=== PATIENT | female | born 1955 | race Hispanic/Latino ===

== ENCOUNTER → 2019-01-09 | Outpatient (CLI) | payer MEDICARE, OTHER | END | disposition home or self-care (01) | LOC: OIH 11:05 | PROVIDERS: ATTEND Internal Medicine | DX: J45.909 Unspecified asthma, uncomplicated (principal); M47.815 Spondylosis without myelopathy or radiculopathy, thoracolumbar region | CPT/HCPCS: 71046 ==

== ENCOUNTER → 2019-04-23 | Outpatient (CLI) | payer OTHER | END | disposition home or self-care (01) | LOC: OIH 10:16 | PROVIDERS: ATTEND Internal Medicine | DX: I10 Essential (primary) hypertension (principal) | CPT/HCPCS: 71046 ==

== ENCOUNTER 2019-11-08 15:32 | Inpatient (IN) | payer OTHER ==
[~2019-11-08] VITALS: Ht 172.7 cm; Wt 84.8 kg
[2019-11-08] MEDS ORDERED: ACETAMINOPHEN 325 MG TAB ONE (15:41)
[2019-11-08 15:55] LABS: BASOPHILS % (AUTO) 0.1 % (0.0-5.0); HEMATOCRIT 39.2 % (36-48); LYMPHOCYTES % (AUTO) 3.2 % (21.0-51.0); MEAN CORPUSCULAR HEMOGLOBIN 29.9 pg (27.0-33.0); MEAN CORPUSCULAR HGB CONC 36.2 g/dL (32.0-36.0); MEAN CORPUSCULAR VOLUME 82.5 fL (79-99); MONOCYTES % (AUTO) 2.3 % (3.0-13.0); NEUTROPHILS % (AUTO) 93.9 % (40.0-77.0); PLATELET COUNT (AUTO) 244 K/uL (130-400); RED BLOOD CELL COUNT(AUTO) 4.75 MIL/uL (4.00-5.50)
[2019-11-08] MEDS ORDERED: ALBUTEROL INHALER 90MCG/INH IH ONE (16:08)
[2019-11-08 16:09] LABS: INR 0.95 (0.85-1.15); PARTIAL THROMBOPLASTIN TIME 29.6 SEC (26.3-35.5); PROTHROMBIN TIME 10.3 SEC (9.6-11.6)
[2019-11-08] MEDS ORDERED: ONDANSETRON HCL 4 MG/2 ML VIAL ONE (16:09)
[2019-11-08] MEDS ORDERED: DEXAMETHASONE SOD PHOSPHATE 10MG/ML 1ML VIAL ONE (16:09)
[2019-11-08 16:10] LABS: ABG BASE EXCESS 7.1 mmol/L (-2.0-3.0); ABG HCO3 28.7 mmol/L (21.0-28.0); ABG OXYGEN SATURATION 86.5 % (95.0-99.0); ABG PCO2 32 mmHg (32-45)
[2019-11-08] MEDS ORDERED: ZINC SULFATE 220 CAPSULE ONE (16:10)
[2019-11-08] MEDS ORDERED: DOXYCYCLINE 100MG+NS 250ML 250 ML IV ONE (16:10)
[2019-11-08 16:15] LABS: ALBUMIN 2.6 g/dL (3.5-5.0); BILIRUBIN,TOTAL 0.7 mg/dL (0.2-1.0); CREATININE 1.4 mg/dL (0.5-1.5); TOTAL PROTEIN, SERUM 6.8 g/dL (6.0-8.3)
[2019-11-08 16:19] LABS: POTASSIUM 2.1 mmol/L (3.5-5.1)
[2019-11-08] MEDS ORDERED: POTASSIUM BICARB/CIT AC 25 MEQ TABLET.EFF ONE (16:23)
[2019-11-08 16:25] LABS: MYOGLOBIN 378 ng/mL (10-92); TROPONIN I < 0.04 ng/mL (0.00-0.06)
[2019-11-08 16:26] LABS: CREATINE KINASE, TOTAL 517 U/L (21-232)
[2019-11-08] MEDS ORDERED: POTASSIUM CHLORIDE 20MEQ/100ML 100 ML IV ONE (16:27)
[2019-11-08] MEDS ORDERED: AZITHROMYCIN 500MG+NS 250ML 250 ML IV ONE (19:03)
[2019-11-09] VITALS (7 sets, daily range): BP systolic 107–137; BP diastolic 54–81
[2019-11-09] MEDS ORDERED: ALBUTEROL INHALER 90MCG/INH IH PRN (02:45)
[2019-11-09] MEDS ORDERED: POTASSIUM CHLORIDE 20MEQ/100ML 100 ML IV PRN (03:00)
[2019-11-09] MEDS ORDERED: LIDOCAINE HCL-MPF 1% 2ML VIAL IV PRN (03:00)
[2019-11-09 05:34] LABS: HEMATOCRIT 36.2 % (36-48); MEAN CORPUSCULAR HEMOGLOBIN 29.8 pg (27.0-33.0); MEAN CORPUSCULAR HGB CONC 36.2 g/dL (32.0-36.0); MEAN CORPUSCULAR VOLUME 82.3 fL (79-99); RED BLOOD CELL COUNT(AUTO) 4.4 MIL/uL (4.00-5.50); RED CELL DISTRIBUTION WIDTH 12.9 % (11.0-15.5); WHITE BLOOD COUNT (AUTO) 10.3 K/uL (4.8-10.8)
[2019-11-09] MEDS: INSULIN HUMULIN R 100 UNIT/ML 3ML SQ SCH ×3 (05:43→20:55)
[2019-11-09 05:49] LABS: CREATININE 1.2 mg/dL (0.5-1.5)
[2019-11-09 05:55] LABS: POTASSIUM 2.8 mmol/L (3.5-5.1)
[2019-11-09] MEDS: POTASSIUM CHLORIDE 20 MEQ ERTAB PO PRN ×3 (06:46→15:43)
[2019-11-09] MEDS ORDERED: ENOXAPARIN SODIUM 1 MG/KG SQ SCH (09:00)
[2019-11-09] MEDS ORDERED: DEXAMETHASONE SOD PHOSPHATE 4 MG/ML 1ML VIAL IVP SCH (09:00)
[2019-11-09] MEDS: ENOXAPARIN SODIUM 80 MG/0.8 ML SQ SCH ×2 (09:27→20:55)
[2019-11-09] MEDS: AZITHROMYCIN 500MG+NS 250ML 250 ML IV SCH (09:27)
[2019-11-09] MEDS: DEXAMETHASONE SOD PHOSPHATE 4 MG/ML 1ML VIAL IVP SCH (09:27)
[2019-11-09] MEDS: ACETAMINOPHEN 325 MG TAB PO PRN (14:25)
[2019-11-09] MEDS ORDERED: AMLO5TAB4 PO (15:26)
[2019-11-09] MEDS ORDERED: LOSA50TA64 PO (15:39)
[2019-11-09] MEDS ORDERED: ATOR40TA71 PO (15:39)
[2019-11-09] MEDS ORDERED: METF-910 PO (15:39)
--- NOTE | 2019-11-09 19:00 | NUR ---
INITIAL: Unable to speak or meet w pt. Call placed to [facility] per dixie. Prior to admission pt was living w her spouse. She was independent w ambulation and ADLs. She has been borrowing her dtrs nebulizer machine. Pt was previously driving herself where needed. Pt Elizabeth dcp is for pt to return home at discharge. CM to continue to follow and wait for Md recommendations. Addendum: 11/09/19 at 1902 by JA DIAZ Amended: Links added.
[2019-11-10] VITALS (7 sets, daily range): BP systolic 109–138; BP diastolic 57–77
[2019-11-10] MEDS: POTASSIUM CHLORIDE 20 MEQ ERTAB PO PRN
[2019-11-10] MEDS: POTASSIUM CHLORIDE 10% ELIXIR 20 MEQ/15 ML UDCUP PO PRN ×5 (02:30→18:58)
[2019-11-10] MEDS: ACETAMINOPHEN 325 MG TAB PO PRN (03:49)
[2019-11-10 04:03] LABS: ABG HCO3 27.5 mmol/L (21.0-28.0); ABG OXYGEN SATURATION 86.6 % (95.0-99.0); ABG PCO2 38 mmHg (32-45)
[2019-11-10 05:38] LABS: BASOPHILS % (AUTO) 0.1 % (0.0-5.0); LYMPHOCYTES % (AUTO) 4.3 % (21.0-51.0); MEAN CORPUSCULAR HEMOGLOBIN 29.7 pg (27.0-33.0); MEAN CORPUSCULAR HGB CONC 36.3 g/dL (32.0-36.0); MEAN CORPUSCULAR VOLUME 81.8 fL (79-99); MONOCYTES % (AUTO) 3.8 % (3.0-13.0); NEUTROPHILS % (AUTO) 91.3 % (40.0-77.0); PLATELET COUNT (AUTO) 270 K/uL (130-400); RED BLOOD CELL COUNT(AUTO) 4.28 MIL/uL (4.00-5.50); RED CELL DISTRIBUTION WIDTH 12.9 % (11.0-15.5)
[2019-11-10 06:10] LABS: ALBUMIN 2.2 g/dL (3.5-5.0); BILIRUBIN,DIRECT 0.1 mg/dL (0.0-0.3); BILIRUBIN,TOTAL 0.5 mg/dL (0.2-1.0); CREATININE 1.1 mg/dL (0.5-1.5); MAGNESIUM 2.7 mg/dL (1.80-2.40); PHOSPHORUS 2.1 mg/dL (2.5-4.9); POTASSIUM 3.3 mmol/L (3.5-5.1)
[2019-11-10] MEDS: INSULIN HUMULIN R 100 UNIT/ML 3ML SQ SCH ×4 (06:44→16:53)
[2019-11-10] MEDS: DEXAMETHASONE SOD PHOSPHATE 4 MG/ML 1ML VIAL IVP SCH (08:32)
[2019-11-10] MEDS: ENOXAPARIN SODIUM 80 MG/0.8 ML SQ SCH ×2 (08:32→20:32)
[2019-11-10] MEDS: AZITHROMYCIN 500MG+NS 250ML 250 ML IV SCH (08:32)
[2019-11-10] MEDS ORDERED: LOPERAMIDE 1 MG/7.5 ML UDCUP PO PRN (10:00)
[2019-11-10] MEDS: GUAIFENESIN-CODEINE 5 ML SYRUP PO PRN ×2 (10:58→21:12)
[2019-11-10] MEDS: METRONIDAZOLE 500MG/100ML BAG 100 ML IV SCH ×2 (12:48→21:11)
[2019-11-10] MEDS ORDERED: ALBUTEROL INHALER 90MCG/INH IH PRN (13:45)
--- NOTE | 2019-11-10 14:05 | NUR ---
Pt asked if she could turn over & stated that she needed to use the bathroom as well. Pt had been in prone position for ~ 4hours. Pt denied SOB, SpO2 98% on HFNC. Assisted to help pt turn back to supine but pt became distressed when she turned and sat up. Sats decreased to the 70's. 100% NRB added for flow & HFNC increased to 55L. Renita RN came to bedside to help. We placed pt back in prone position. Sats increased to 93% and pt WOB improved.
[2019-11-11] VITALS (16 sets, daily range): BP systolic 130–155; BP diastolic 66–89
[2019-11-11] MEDS: GUAIFENESIN-CODEINE 5 ML SYRUP PO PRN ×2 (05:01→13:17)
[2019-11-11] MEDS: METRONIDAZOLE 500MG/100ML BAG 100 ML IV SCH ×3 (05:01→21:17)
[2019-11-11 05:55] LABS: BASOPHILS % (AUTO) 0.1 % (0.0-5.0); HEMATOCRIT 37.2 % (36-48); LYMPHOCYTES % (AUTO) 5.1 % (21.0-51.0); MEAN CORPUSCULAR HEMOGLOBIN 29.6 pg (27.0-33.0); MEAN CORPUSCULAR HGB CONC 35.5 g/dL (32.0-36.0); MEAN CORPUSCULAR VOLUME 83.4 fL (79-99); MONOCYTES % (AUTO) 4.1 % (3.0-13.0); NEUTROPHILS % (AUTO) 90.2 % (40.0-77.0); PLATELET COUNT (AUTO) 275 K/uL (130-400); RED BLOOD CELL COUNT(AUTO) 4.46 MIL/uL (4.00-5.50); RED CELL DISTRIBUTION WIDTH 13.2 % (11.0-15.5); WHITE BLOOD COUNT (AUTO) 13.2 K/uL (4.8-10.8)
[2019-11-11 06:25] LABS: ALBUMIN 2.3 g/dL (3.5-5.0); BILIRUBIN,TOTAL 0.6 mg/dL (0.2-1.0); CREATININE 1.2 mg/dL (0.5-1.5); MAGNESIUM 2.4 mg/dL (1.80-2.40); PHOSPHORUS 2.7 mg/dL (2.5-4.9); POTASSIUM 3.9 mmol/L (3.5-5.1); TOTAL PROTEIN, SERUM 6.2 g/dL (6.0-8.3)
[2019-11-11] MEDS: INSULIN HUMULIN R 100 UNIT/ML 3ML SQ SCH ×4 (07:29→21:00)
[2019-11-11] MEDS: AZITHROMYCIN 500MG+NS 250ML 250 ML IV SCH (09:17)
[2019-11-11] MEDS: DEXAMETHASONE SOD PHOSPHATE 4 MG/ML 1ML VIAL IVP SCH (09:17)
[2019-11-11] MEDS: ENOXAPARIN SODIUM 80 MG/0.8 ML SQ SCH ×2 (09:18→21:17)
[2019-11-11 11:14] LABS: ABG BASE EXCESS 4.4 mmol/L (-2.0-3.0); ABG HCO3 27.6 mmol/L (21.0-28.0); ABG OXYGEN SATURATION 89.8 % (95.0-99.0); ABG PCO2 37 mmHg (32-45)
[2019-11-11] MEDS ORDERED: FUROSEMIDE 10 MG/ML 10ML VIAL ONE (15:26)
[2019-11-11] MEDS: FUROSEMIDE 10 MG/ML 2ML VIAL IV SCH (15:40)
--- NOTE | 2019-11-11 19:00 | NUR ---
ACCEPTED CARE ACCEPTED CARE REPORT RECEIVED USING SBAR FORMAT
--- NOTE | 2019-11-11 19:02 | NUR ---
Patient transferred to ICU due to current respiratory status (Per Dr. Muhammad) She is currently on HFNC 40L and NRB (15L at this time) VSS and no complaints of pain or discomfort. Convalescent plasma consent but will no longer be given due concern for fluid overload. made aware of unit change. Patient belongings bedside-spouse will shredder picker in the morning.
[2019-11-11] MEDS: METHYLPREDNISOLONE SOD SUCC 125MG/2ML VIAL IVP SCH (21:17)
[2019-11-12] VITALS (14 sets, daily range): BP systolic 122–156; BP diastolic 65–93
[2019-11-12 03:46] LABS: BASOPHILS % (AUTO) 0.1 % (0.0-5.0); HEMATOCRIT 35.2 % (36-48); LYMPHOCYTES % (AUTO) 3.4 % (21.0-51.0); MEAN CORPUSCULAR HEMOGLOBIN 29.8 pg (27.0-33.0); MEAN CORPUSCULAR HGB CONC 35.5 g/dL (32.0-36.0); MONOCYTES % (AUTO) 1.5 % (3.0-13.0); NEUTROPHILS % (AUTO) 94.4 % (40.0-77.0); PLATELET COUNT (AUTO) 264 K/uL (130-400); RED BLOOD CELL COUNT(AUTO) 4.19 MIL/uL (4.00-5.50); RED CELL DISTRIBUTION WIDTH 12.9 % (11.0-15.5); WHITE BLOOD COUNT (AUTO) 12.2 K/uL (4.8-10.8)
[2019-11-12 04:02] LABS: CREATININE 1.1 mg/dL (0.5-1.5); MAGNESIUM 2.4 mg/dL (1.80-2.40); POTASSIUM 3.9 mmol/L (3.5-5.1)
[2019-11-12 04:20] LABS: ABG BASE EXCESS 2.2 mmol/L (-2.0-3.0); ABG HCO3 26.2 mmol/L (21.0-28.0); ABG OXYGEN SATURATION 97.8 % (95.0-99.0); ABG PCO2 39 mmHg (32-45)
[2019-11-12] MEDS: METRONIDAZOLE 500MG/100ML BAG 100 ML IV SCH ×3 (05:21→20:20)
[2019-11-12] MEDS: FUROSEMIDE 10 MG/ML 2ML VIAL IV SCH ×2 (05:22→17:35)
[2019-11-12] MEDS: INSULIN HUMULIN R 100 UNIT/ML 3ML SQ SCH ×4 (06:19→20:19)
[2019-11-12] MEDS: AZITHROMYCIN 500MG+NS 250ML 250 ML IV SCH (08:58)
[2019-11-12] MEDS: METHYLPREDNISOLONE SOD SUCC 125MG/2ML VIAL IVP SCH ×2 (08:58→20:19)
[2019-11-12] MEDS: ENOXAPARIN SODIUM 80 MG/0.8 ML SQ SCH ×2 (08:59→20:20)
[2019-11-12] MEDS ORDERED: PHARMACY COMMUNICATION MISC SCH (09:00)
[2019-11-12] MEDS: GUAIFENESIN-CODEINE 5 ML SYRUP PO PRN ×3 (09:51→17:37)
[2019-11-12] MEDS ORDERED: COMPOUND IV REFRIGERATED 1 EACH IVSOLN MISC PRN ×2 (14:30→15:00)
[2019-11-12] MEDS: BENZONATATE 100 MG CAPSULE PO SCH ×2 (14:55→23:00)
[2019-11-12] MEDS ORDERED: REMDESIVIR (EUA) 520 200 MG in SODIUM CHLORIDE 0.9% 250 ML IV ONE (15:00)
[2019-11-12] MEDS ORDERED: GUAIFENESIN 600 MG TABLET.ER PO SCH (15:50)
--- NOTE | 2019-11-12 17:51 | NUR ---
OXYGEN SATURATION STATUS PTWAS ABLE TO BE POSITIONED IN HI- FOWLERS POSITION IN BED AND TOLERATED PO FOOD AND LIQUID INTAKE WITH SATS MAINTAINING GREATER THAT 92% WITH EXERTION. PTPREFERS NON SPICY AND LESS SALTY FOODS. RECEIVED 1ST DOSE OF REMDESIVER THIS AT 3PM. FOLLOWED BY AMELIA. HAND QUILTER WAS ABLE TO UPDATE AND ADDRESS ANY QUESTIONS ASKED. ONLINE FACILITATOR AND MD MADE ROUNDS AND ADDRESSED COUGH AND PRODUCTIVE SPUTUM. WILL CONTINUE TO MONITOR
[2019-11-12] MEDS: GUAIFENESIN 600 MG TABLET.ER PO SCH (20:19)
[2019-11-13] VITALS (16 sets, daily range): BP systolic 107–145; BP diastolic 58–77
[2019-11-13 04:11] LABS: BASOPHILS % (AUTO) 0.2 % (0.0-5.0); HEMATOCRIT 37.9 % (36-48); LYMPHOCYTES % (AUTO) 2.5 % (21.0-51.0); MEAN CORPUSCULAR HEMOGLOBIN 29.6 pg (27.0-33.0); MEAN CORPUSCULAR HGB CONC 35.1 g/dL (32.0-36.0); MEAN CORPUSCULAR VOLUME 84.4 fL (79-99); NEUTROPHILS % (AUTO) 93.6 % (40.0-77.0); PLATELET COUNT (AUTO) 290 K/uL (130-400); RED BLOOD CELL COUNT(AUTO) 4.49 MIL/uL (4.00-5.50); RED CELL DISTRIBUTION WIDTH 12.8 % (11.0-15.5); WHITE BLOOD COUNT (AUTO) 18.5 K/uL (4.8-10.8)
[2019-11-13 04:31] LABS: ABG BASE EXCESS 3.2 mmol/L (-2.0-3.0); ABG HCO3 26.5 mmol/L (21.0-28.0); ABG OXYGEN SATURATION 87.9 % (95.0-99.0); ABG PCO2 37 mmHg (32-45)
[2019-11-13 04:35] LABS: CREATININE 1.3 mg/dL (0.5-1.5); POTASSIUM 3.9 mmol/L (3.5-5.1)
[2019-11-13] MEDS: METRONIDAZOLE 500MG/100ML BAG 100 ML IV SCH ×3 (05:00→23:13)
[2019-11-13] MEDS: PHARMACY COMMUNICATION MISC SCH (05:00)
[2019-11-13] MEDS: FUROSEMIDE 10 MG/ML 2ML VIAL IV SCH ×2 (05:00→15:29)
[2019-11-13] MEDS: BENZONATATE 100 MG CAPSULE PO SCH ×3 (05:37→23:13)
[2019-11-13] MEDS: INSULIN HUMULIN R 100 UNIT/ML 3ML SQ SCH (05:37)
[2019-11-13] MEDS: METHYLPREDNISOLONE SOD SUCC 125MG/2ML VIAL IVP SCH ×2 (09:18→21:00)
[2019-11-13] MEDS: AZITHROMYCIN 500MG+NS 250ML 250 ML IV SCH (09:18)
[2019-11-13] MEDS: ENOXAPARIN SODIUM 80 MG/0.8 ML SQ SCH ×2 (09:19→21:00)
[2019-11-13] MEDS: GUAIFENESIN 600 MG TABLET.ER PO SCH ×2 (09:19→21:00)
[2019-11-13] MEDS ORDERED: REMDESIVIR (EUA) 520 100 MG in SODIUM CHLORIDE 0.9% 250 ML IV SCH (15:00)
[2019-11-13] MEDS: GUAIFENESIN-CODEINE 5 ML SYRUP PO PRN (15:28)
--- NOTE | 2019-11-13 19:17 | NUR ---
PT SLEPT EARLIER PART OF SHIFT. DID NOT CONSUME BREAKFAST. WAS ABLE TO BE REPOSITIONED FOR LUNCH AND CONSUMED HALF OF MEAL ALONG WITH MINERAL WATER PROVIDED BY FAMILY. PT HAD 2 LARGE LOOSE STOOLS THIS SHIFT. RECEIVED 2ND DOSE OF REMDESIVIR-TOLERATED WELL. REMAINS AFEBRILE WITH V/S WNL. INCREASED OXYGEN TO 55L IN ORDER TO MAINTAIN SATS GREATER THAT 90.
[2019-11-14] VITALS (11 sets, daily range): BP systolic 96–164; BP diastolic 55–95
[2019-11-14 03:44] LABS: HEMATOCRIT 39.4 % (36-48); MEAN CORPUSCULAR HEMOGLOBIN 29.2 pg (27.0-33.0); MEAN CORPUSCULAR HGB CONC 34.5 g/dL (32.0-36.0); MEAN CORPUSCULAR VOLUME 84.7 fL (79-99); RED BLOOD CELL COUNT(AUTO) 4.65 MIL/uL (4.00-5.50); RED CELL DISTRIBUTION WIDTH 12.9 % (11.0-15.5); WHITE BLOOD COUNT (AUTO) 16.1 K/uL (4.8-10.8)
[2019-11-14 04:04] LABS: CREATININE 1.4 mg/dL (0.5-1.5); POTASSIUM 4.2 mmol/L (3.5-5.1)
[2019-11-14 04:41] LABS: ABG BASE EXCESS 2.7 mmol/L (-2.0-3.0); ABG HCO3 26.2 mmol/L (21.0-28.0); ABG OXYGEN SATURATION 82.3 % (95.0-99.0); ABG PCO2 37 mmHg (32-45)
[2019-11-14] MEDS: METRONIDAZOLE 500MG/100ML BAG 100 ML IV SCH ×3 (05:47→22:25)
[2019-11-14] MEDS: FUROSEMIDE 10 MG/ML 2ML VIAL IV SCH ×2 (05:47→18:33)
[2019-11-14] MEDS: PHARMACY COMMUNICATION MISC SCH (06:01)
[2019-11-14] MEDS: GUAIFENESIN-CODEINE 5 ML SYRUP PO PRN (09:21)
[2019-11-14] MEDS: BENZONATATE 100 MG CAPSULE PO SCH ×3 (09:21→22:25)
[2019-11-14] MEDS: ACETAMINOPHEN 325 MG TAB PO PRN (09:23)
[2019-11-14] MEDS: ENOXAPARIN SODIUM 80 MG/0.8 ML SQ SCH ×2 (09:23→22:25)
[2019-11-14] MEDS: GUAIFENESIN 600 MG TABLET.ER PO SCH (09:24)
[2019-11-14] MEDS: METHYLPREDNISOLONE SOD SUCC 125MG/2ML VIAL IVP SCH ×2 (09:24→22:24)
[2019-11-14] MEDS: AZITHROMYCIN 500MG+NS 250ML 250 ML IV SCH (09:33)
[2019-11-14] MEDS: REMDESIVIR (EUA) 520 100 MG in SODIUM CHLORIDE 0.9% 250 ML IV SCH (11:30)
[2019-11-14] MEDS: INSULIN HUMULIN R 100 UNIT/ML 3ML SQ SCH ×3 (11:30→21:00)
--- NOTE | 2019-11-14 15:22 | NUR ---
RD NOTIFICATION Pt admitted with COVID-PNA. Heart healthy diet order in place. Patient with poor appetite. High Flow oxygen support, increased work of breathing. Monitored labs: WBC 16.1, BUN 40, BG 129, Ca 8.3, Alb 2.3. Recommend Glucerna TID Recommend Daily MVI RD to continue to monitor. Please notify as additional nutrition concerns arise. Thank you.
[2019-11-14] MEDS: GUAIFENESIN-CODEINE 5 ML SYRUP PO SCH ×2 (15:45→22:25)
[2019-11-14] MEDS: CEFEPIME HCL 2 GM VIAL IVP SCH (16:00)
--- NOTE | 2019-11-14 18:00 | NUR ---
ASSESSMENT PT GIVEN CHAIR BATH. SATS DROPPED DOWN IN 70S AND 80S DURING CARE AND SITTING UP. PT DESIRED TO REMAIN SITTING UP IN CHAIR FOR ABOUT 40 MINUTES WHILE EATING BROTH AT THAT TIME SHE HAD A LARGE LOOSE BM. STOOL WAS COLLECTED AND SENT TO LAB TESTING DISCUSSED WITH CLINICAL SCIENTIST THE DAY PRIOR. PT WAS THEN POSITIONED IN BED AND SATS SLOWLY INCREASED TO 92%. PT RESTED QUIETLY UNTIL END OF SHIFT.
[2019-11-15] VITALS (11 sets, daily range): BP systolic 94–120; BP diastolic 43–68
[2019-11-15] MEDS: GUAIFENESIN-CODEINE 5 ML SYRUP PO SCH ×4 (04:32→20:51)
[2019-11-15 04:52] LABS: HEMATOCRIT 39.2 % (36-48); MEAN CORPUSCULAR HEMOGLOBIN 29.7 pg (27.0-33.0); MEAN CORPUSCULAR HGB CONC 35.2 g/dL (32.0-36.0); MEAN CORPUSCULAR VOLUME 84.5 fL (79-99); RED BLOOD CELL COUNT(AUTO) 4.64 MIL/uL (4.00-5.50); RED CELL DISTRIBUTION WIDTH 12.9 % (11.0-15.5)
[2019-11-15 05:23] LABS: CARBON DIOXIDE 30 mmol/L (21-32); CHLORIDE 105 mmol/L (101-111); CREATININE 1.4 mg/dL (0.5-1.5); GLOMERULAR FILTR. RATE CALC 40 mL/min (>60); GLUCOSE,RANDOM 170 mg/dL (70-105); MYOGLOBIN 593 ng/mL (10-92); PHOSPHORUS 3.4 mg/dL (2.5-4.9); POTASSIUM 3.6 mmol/L (3.5-5.1); SODIUM SERUM 143 mmol/L (136-145); TROPONIN I < 0.04 ng/mL (0.00-0.06); UREA NITROGEN, BLOOD 41 mg/dL (7-18)
[2019-11-15 05:34] LABS: CREATINE KINASE, TOTAL 485 U/L (21-232)
[2019-11-15] MEDS: FUROSEMIDE 10 MG/ML 2ML VIAL IV SCH ×2 (05:42→15:21)
[2019-11-15] MEDS: METRONIDAZOLE 500MG/100ML BAG 100 ML IV SCH ×3 (05:42→20:52)
[2019-11-15] MEDS: INSULIN HUMULIN R 100 UNIT/ML 3ML SQ SCH ×3 (05:42→21:00)
[2019-11-15] MEDS: BENZONATATE 100 MG CAPSULE PO SCH ×3 (05:42→20:51)
[2019-11-15] MEDS: PHARMACY COMMUNICATION MISC SCH (06:00)
[2019-11-15] MEDS: METHYLPREDNISOLONE SOD SUCC 125MG/2ML VIAL IVP SCH ×2 (09:47→20:53)
[2019-11-15] MEDS: CEFEPIME HCL 2 GM VIAL IVP SCH ×3 (09:47→15:17)
[2019-11-15] MEDS: GUAIFENESIN-DM 200/20 MG 10 ML PO PRN (09:48)
[2019-11-15] MEDS: ENOXAPARIN SODIUM 80 MG/0.8 ML SQ SCH ×2 (09:48→20:53)
[2019-11-15] MEDS: AZITHROMYCIN 500MG+NS 250ML 250 ML IV SCH (09:48)
[2019-11-15] MEDS: REMDESIVIR (EUA) 520 100 MG in SODIUM CHLORIDE 0.9% 250 ML IV SCH (11:30)
--- NOTE | 2019-11-15 12:11 | NUR ---
RECEIVE PT WITH SATS IN THE 70S AND 80S THIS AM. NOTIFIED BUSINESS INTEGRATION MANAGER MD. MD MADE ROUNDS, WAITING ORDERS. PT IN NO APPARENT DISTRESS. WILL CONTINUE TO MONITOR.
[2019-11-15] MEDS ORDERED: MAG HYDROX/AL HYDROX/SIMETH ES 30 ML SUSP UDCUP PO PRN (13:30)
[2019-11-15] MEDS: ACETAMINOPHEN 325 MG TAB PO PRN (15:16)
--- NOTE | 2019-11-15 18:07 | NUR ---
PT WAS ABLE TO COMMUNICATE WITH FAMILY VIA ZOOM MEETING TODAY. APPEARS TO BE HAPPY AND OVERJOYED. LINEN CHANGED AND LAISHA-CARE PROVIDED. PT DID DE-SAT TO THE 80S DURING THIS OCCURRENCE. WAS ABLE TO CONSUME CHICKEN BROTH AND PO FLUIDS UPON HER REQUEST.
[2019-11-16] VITALS (20 sets, daily range): BP systolic 95–134; BP diastolic 55–92
[2019-11-16 03:43] LABS: ABG BASE EXCESS 2.1 mmol/L (-2.0-3.0); ABG HCO3 25.3 mmol/L (21.0-28.0); ABG OXYGEN SATURATION 80.9 % (95.0-99.0); ABG PCO2 35 mmHg (32-45)
[2019-11-16 04:07] LABS: MEAN CORPUSCULAR HEMOGLOBIN 29.9 pg (27.0-33.0); MEAN CORPUSCULAR HGB CONC 35.7 g/dL (32.0-36.0); MEAN CORPUSCULAR VOLUME 83.9 fL (79-99); RED BLOOD CELL COUNT(AUTO) 4.41 MIL/uL (4.00-5.50); RED CELL DISTRIBUTION WIDTH 12.8 % (11.0-15.5); WHITE BLOOD COUNT (AUTO) 15.3 K/uL (4.8-10.8)
[2019-11-16 04:33] LABS: BILIRUBIN,TOTAL 0.6 mg/dL (0.2-1.0); CREATININE 1.3 mg/dL (0.5-1.5); MAGNESIUM 2.5 mg/dL (1.80-2.40); PHOSPHORUS 3.3 mg/dL (2.5-4.9); POTASSIUM 3.3 mmol/L (3.5-5.1); THYROID STIMULATING HORMONE 0.42 uIU/mL (0.36-3.74); TOTAL PROTEIN, SERUM 5.9 g/dL (6.0-8.3)
[2019-11-16] MEDS: GUAIFENESIN-CODEINE 5 ML SYRUP PO SCH ×4 (04:56→21:45)
[2019-11-16] MEDS: CEFEPIME HCL 2 GM VIAL IVP SCH (04:56)
[2019-11-16] MEDS: FUROSEMIDE 10 MG/ML 2ML VIAL IV SCH ×2 (04:58→17:42)
[2019-11-16] MEDS: METRONIDAZOLE 500MG/100ML BAG 100 ML IV SCH ×3 (04:58→22:00)
[2019-11-16] MEDS: BENZONATATE 100 MG CAPSULE PO SCH ×3 (06:05→23:00)
[2019-11-16] MEDS: INSULIN HUMULIN R 100 UNIT/ML 3ML SQ SCH ×4 (06:06→21:00)
[2019-11-16] MEDS: POTASSIUM CHLORIDE 20 MEQ ERTAB PO PRN ×3 (06:31→11:00)
[2019-11-16] MEDS: PHARMACY COMMUNICATION MISC SCH (07:30)
[2019-11-16] MEDS: METHYLPREDNISOLONE SOD SUCC 125MG/2ML VIAL IVP SCH ×2 (07:55→21:00)
[2019-11-16] MEDS: ENOXAPARIN SODIUM 80 MG/0.8 ML SQ SCH ×2 (07:56→21:00)
[2019-11-16] MEDS ORDERED: PHARMACY COMMUNICATION MISC SCH (08:00)
[2019-11-16] MEDS ORDERED: SODIUM CHLORIDE 0.9% 500ML 500 ML IV ONE (11:44)
[2019-11-16] MEDS: REMDESIVIR (EUA) 520 100 MG in SODIUM CHLORIDE 0.9% 250 ML IV SCH (13:05)
[2019-11-16] MEDS: CEFEPIME HCL 1 GM VIAL IVP SCH ×2 (13:43→22:00)
--- NOTE | 2019-11-16 15:37 | NUR ---
FAMILY- AND DAUGHTER- UPDATED BY PHONE. ZOOM SCHEDULED FOR 5:30 PM THIS AFTERNOON. PT RECEIVED COMMUNICATION BOARD FROM FAMILY.
[2019-11-16] MEDS: GUAIFENESIN-DM 200/20 MG 10 ML PO PRN (15:47)
--- NOTE | 2019-11-16 18:00 | NUR ---
ZOOM FAMILY CONFERENCE DONE. PT REQUESTED TO END VIDEO CALL BECAUSE SHE GOT TIRED.
[2019-11-16] MEDS: LACTOBACILLUS RHAMNOSUS GG 1 EACH CAP.SPRINK PO SCH (21:00)
[2019-11-17] VITALS (28 sets, daily range): BP systolic 99–135; BP diastolic 59–76
[2019-11-17 03:29] LABS: HEMATOCRIT 39.2 % (36-48); MEAN CORPUSCULAR HEMOGLOBIN 29.6 pg (27.0-33.0); MEAN CORPUSCULAR HGB CONC 34.9 g/dL (32.0-36.0); MEAN CORPUSCULAR VOLUME 84.7 fL (79-99); RED BLOOD CELL COUNT(AUTO) 4.63 MIL/uL (4.00-5.50); RED CELL DISTRIBUTION WIDTH 13.2 % (11.0-15.5); WHITE BLOOD COUNT (AUTO) 19.4 K/uL (4.8-10.8)
[2019-11-17 03:50] LABS: ALBUMIN 2.1 g/dL (3.5-5.0); BILIRUBIN,TOTAL 0.5 mg/dL (0.2-1.0); CREATININE 1.5 mg/dL (0.5-1.5); MAGNESIUM 2.2 mg/dL (1.80-2.40); POTASSIUM 4.3 mmol/L (3.5-5.1); TOTAL PROTEIN, SERUM 6.1 g/dL (6.0-8.3)
[2019-11-17 04:18] LABS: ABG BASE EXCESS 3.4 mmol/L (-2.0-3.0); ABG OXYGEN SATURATION 91.7 % (95.0-99.0); ABG PCO2 38 mmHg (32-45)
[2019-11-17] MEDS: CEFEPIME HCL 1 GM VIAL IVP SCH ×3 (05:46→22:00)
[2019-11-17] MEDS: METRONIDAZOLE 500MG/100ML BAG 100 ML IV SCH ×3 (05:46→22:00)
[2019-11-17] MEDS: FUROSEMIDE 10 MG/ML 2ML VIAL IV SCH ×2 (05:47→17:17)
[2019-11-17] MEDS: GUAIFENESIN-CODEINE 5 ML SYRUP PO SCH ×4 (05:47→20:41)
[2019-11-17] MEDS: INSULIN HUMULIN R 100 UNIT/ML 3ML SQ SCH ×4 (06:34→21:00)
[2019-11-17] MEDS: BENZONATATE 100 MG CAPSULE PO SCH (06:35)
[2019-11-17] MEDS: PHARMACY COMMUNICATION MISC SCH (07:10)
[2019-11-17] MEDS: METHYLPREDNISOLONE SOD SUCC 125MG/2ML VIAL IVP SCH ×2 (09:00→20:32)
[2019-11-17] MEDS: ENOXAPARIN SODIUM 80 MG/0.8 ML SQ SCH ×2 (09:00→20:32)
[2019-11-17] MEDS: LACTOBACILLUS RHAMNOSUS GG 1 EACH CAP.SPRINK PO SCH ×3 (09:00→20:32)
[2019-11-17] MEDS: REMDESIVIR (EUA) 520 100 MG in SODIUM CHLORIDE 0.9% 250 ML IV SCH (12:13)
[2019-11-18] VITALS (32 sets, daily range): BP systolic 75–150; BP diastolic 50–108
[2019-11-18] MEDS: GUAIFENESIN-CODEINE 5 ML SYRUP PO SCH ×4 (03:45→21:45)
[2019-11-18] MEDS: METRONIDAZOLE 500MG/100ML BAG 100 ML IV SCH ×3 (04:26→21:32)
[2019-11-18] MEDS: FUROSEMIDE 10 MG/ML 2ML VIAL IV SCH ×2 (04:26→16:22)
[2019-11-18] MEDS: CEFEPIME HCL 1 GM VIAL IVP SCH ×3 (04:26→21:32)
--- NOTE | 2019-11-18 05:05 | NUR ---
UPON ASSESSMENT PT NECK APEARS LARGER PALPATED NECK AND CHEST. THERE IS NEW NOTED SUBCUTANEOUS EMPHYSEMA OVER LYING LEFT CHEST DOWN TO HER ANTECUBITAL AREA OF ARM. IT COVERS AND GOES ACROSS HER NECK.
[2019-11-18] MEDS: INSULIN HUMULIN R 100 UNIT/ML 3ML SQ SCH ×4 (07:30→18:00)
[2019-11-18 08:27] LABS: ABG BASE EXCESS 2.5 mmol/L (-2.0-3.0); ABG OXYGEN SATURATION 85.6 % (95.0-99.0); ABG PCO2 36 mmHg (32-45)
[2019-11-18] MEDS: METHYLPREDNISOLONE SOD SUCC 125MG/2ML VIAL IVP SCH ×2 (08:57→21:32)
[2019-11-18] MEDS: ENOXAPARIN SODIUM 80 MG/0.8 ML SQ SCH ×2 (08:57→21:32)
[2019-11-18] MEDS: LACTOBACILLUS RHAMNOSUS GG 1 EACH CAP.SPRINK PO SCH ×3 (09:00→21:33)
[2019-11-18 09:28] LABS: CREATININE 1.6 mg/dL (0.5-1.5); PHOSPHORUS 3.8 mg/dL (2.5-4.9); POTASSIUM 4.1 mmol/L (3.5-5.1)
--- NOTE | 2019-11-18 12:20 | NUR ---
RD FOLLOW UP - TUBE FEEDING NOTIFICATION Pt on continuous BiPap, NGT placed for tube feeding, Recommend continuous tube feeding Glucerna 1.5 initiated at 10mls/hr. Goal rate 45mls/hr to meet protein nutrient needs. Recommend H2O flushes at 200mls Q4hrs Recommendations faxed to 2C ([phone]), RN notified. NUTRITION NOTE: Pt with respiratory failure, increased work of breathing. History of DM, HTN. Monitored lab values: WBC 19.4, Na 148, BUN 58, Cr 1.6, GFR 34, BG 250, Ca 8.2, Mg 3.00, Alb 2.1. Lasix and Lactobacillus antidiarrheal agent in place. Day [address] to continue to monitor. Please notify as additional nutrition concerns arise. Thank you.
--- NOTE | 2019-11-18 12:37 | NUR ---
NURSE COMMUNICATION COMPLETED. RECOMMEND NPO, ALTERNATE MEANS OF NUTRITION/HYDRATION IV (PPN VS TPN) ORDER RECEIVED FOR BEDSIDE SWALLOW EVALUATION. Pt CURRENTLY ON BIPAP. EEG TECHNICIAN COORDINATED WITH MJ SCHAFFER AND NURSE VIVI, Pt NOT ABLE TO TOLERATE BIPAP REMOVAL FOR EVALUATION. PER NURSE, HE ATTEMPTED NG TUBE WITH Pt DESATURATING (NOT TOLERATED BY Pt). RECOMMEND NPO, ALTERNATE MEANS OF NUTRITION/HYDRATION (PPN VS TPN) SECONDARY TO HIGH RISK FOR ASPIRATION. NURSE VERBALIZED UNDERSTANDING OF RECOMMENDATIONS BY EEG TECHNICIAN. Addendum: 11/18/19 at 1248 by ROSENDO LI [facility] Amended: Links added.
[2019-11-18] MEDS ORDERED: DIAZEPAM 2 MG TAB PO PRN (12:45)
[2019-11-18] MEDS ORDERED: DIAZEPAM 5 MG TABLET ONE (12:47)
[2019-11-18 14:03] LABS: BASOPHILS % (AUTO) 0.1 % (0.0-5.0); LYMPHOCYTES % (AUTO) 1.5 % (21.0-51.0); MEAN CORPUSCULAR HEMOGLOBIN 29.7 pg (27.0-33.0); MEAN CORPUSCULAR HGB CONC 34.2 g/dL (32.0-36.0); MEAN CORPUSCULAR VOLUME 86.7 fL (79-99); MONOCYTES % (AUTO) 2.5 % (3.0-13.0); NEUTROPHILS % (AUTO) 95.3 % (40.0-77.0); NUCLEATED RED BLOOD CELLS 0.1 % (0.0-0.19); PLATELET COUNT (AUTO) 343 K/uL (130-400); RED BLOOD CELL COUNT(AUTO) 5.19 MIL/uL (4.00-5.50); WHITE BLOOD COUNT (AUTO) 21.7 K/uL (4.8-10.8)
[2019-11-18] MEDS ORDERED: DEXMEDETOMIDINE HCL 400 MCG in SODIUM CHLORIDE 0.9% 100 ML IV SCH (14:30)
--- NOTE | 2019-11-18 18:32 | NUR ---
DNI Thoroughly explained to patient what DNI means and patient was alert and oriented x 4. Anastasiya MILLWRIGHT APPRENTICE followed up and confirmed patient was alert and oriented to sign the DNI paperwork.
--- NOTE | 2019-11-18 19:00 | NUR ---
ACCEPTED CARE ACCEPTED CARE REPORT RECEIVED USING SBAR FORMAT.
--- NOTE | 2019-11-18 20:00 | NUR ---
CREPITUS BILATERAL UPPER CHEST CREPITUS, RECEIVED IN REPORT MSD WAS AWARE.
[2019-11-18] MEDS ORDERED: SODIUM CHLORIDE 0.9% 500ML 500 ML IV ONE (21:18)
[2019-11-19] VITALS (57 sets, daily range): BP systolic 67–158; BP diastolic 31–120
[2019-11-19] MEDS: GUAIFENESIN-CODEINE 5 ML SYRUP PO SCH ×4 (03:46→22:18)
[2019-11-19 04:11] LABS: BASOPHILS % (AUTO) 0.2 % (0.0-5.0); HEMATOCRIT 49.1 % (36-48); LYMPHOCYTES % (AUTO) 1.6 % (21.0-51.0); MEAN CORPUSCULAR HEMOGLOBIN 29.9 pg (27.0-33.0); MEAN CORPUSCULAR HGB CONC 34.4 g/dL (32.0-36.0); MEAN CORPUSCULAR VOLUME 86.7 fL (79-99); MONOCYTES % (AUTO) 2.1 % (3.0-13.0); NEUTROPHILS % (AUTO) 95.2 % (40.0-77.0); NUCLEATED RED BLOOD CELLS 0.1 % (0.0-0.19); PLATELET COUNT (AUTO) 284 K/uL (130-400); RED BLOOD CELL COUNT(AUTO) 5.66 MIL/uL (4.00-5.50); RED CELL DISTRIBUTION WIDTH 15.3 % (11.0-15.5); WHITE BLOOD COUNT (AUTO) 23.7 K/uL (4.8-10.8)
[2019-11-19 04:41] LABS: ALBUMIN 2.2 g/dL (3.5-5.0); BILIRUBIN,TOTAL 0.6 mg/dL (0.2-1.0); CREATININE 1.9 mg/dL (0.5-1.5); MAGNESIUM 3.3 mg/dL (1.80-2.40); PHOSPHORUS 4.5 mg/dL (2.5-4.9); POTASSIUM 3.9 mmol/L (3.5-5.1); TOTAL PROTEIN, SERUM 6.7 g/dL (6.0-8.3)
[2019-11-19] MEDS: METRONIDAZOLE 500MG/100ML BAG 100 ML IV SCH ×3 (05:27→22:15)
[2019-11-19] MEDS: FUROSEMIDE 10 MG/ML 2ML VIAL IV SCH ×2 (05:28→18:05)
[2019-11-19] MEDS: CEFEPIME HCL 1 GM VIAL IVP SCH ×3 (05:28→22:15)
[2019-11-19] MEDS: INSULIN HUMULIN R 100 UNIT/ML 3ML SQ SCH ×4 (05:34→18:08)
[2019-11-19] MEDS: METHYLPREDNISOLONE SOD SUCC 125MG/2ML VIAL IVP SCH ×2 (10:18→22:14)
[2019-11-19] MEDS: LACTOBACILLUS RHAMNOSUS GG 1 EACH CAP.SPRINK PO SCH ×3 (10:18→22:14)
[2019-11-19] MEDS: ENOXAPARIN SODIUM 80 MG/0.8 ML SQ SCH ×2 (10:21→22:14)
[2019-11-19] MEDS ORDERED: FENTANYL CITRATE PF 50 MCG/1 ML 2ML VIAL IVP SCH (14:00)
[2019-11-19] MEDS ORDERED: NOREPINEPHRINE 4MG/NS 250ML 250 ML IV ONE (14:01)
[2019-11-19] MEDS ORDERED: MIDAZOLAM HCL 1 MG/ML 2ML VIAL ONE (14:02)
[2019-11-19] MEDS ORDERED: FENTANYL CITRATE PF 50 MCG/1 ML 2ML VIAL ONE (14:03)
[2019-11-19] MEDS ORDERED: FENTANYL 2500MCG+NS 250ML 250 ML IV ONE (14:03)
[2019-11-19] MEDS ORDERED: AMIODARONE HCL 150 MG in DEXTROSE 5%-WATER 100 ML IV SCH (14:45)
[2019-11-19] MEDS ORDERED: AMIODARONE HCL 360 MG in DEXTROSE 5%-WATER 200 ML IV SCH (15:00)
[2019-11-19] MEDS ORDERED: MIDAZOLAM HCL 1 MG/ML 2ML VIAL IVP SCH (15:00)
[2019-11-19] MEDS ORDERED: MIDAZOLAM 100MG-0.9% NS 100ML 100ML BAG IV ONE (15:00)
[2019-11-19] MEDS ORDERED: NOREPINEPHRINE 4MG/NS 250ML 250 ML IV SCH (15:00)
[2019-11-19 15:22] LABS: ABG HCO3 22.4 mmol/L (21.0-28.0); ABG OXYGEN SATURATION 84.2 % (95.0-99.0); ABG PCO2 51 mmHg (32-45)
[2019-11-19] MEDS: VECURONIUM BROMIDE 50 MG in SODIUM CHLORIDE 0.9% 50 ML IV SCH ×2 (15:28→16:35)
--- NOTE | 2019-11-19 15:28 | NUR ---
FOLLOW UP COMPLETED. Pt WITH TUBE FEEDINGS AT THIS TIME. SWALLOW EVALUATION IS RECOMMENDED WHEN CURRENT RESPIRATORY STATUS IMPROVES AND Pt IS ABLE TO BE OFF OF HIGH OXYGEN LEVELS. WORKERS COMPENSATION PARALEGAL WILL CONTINUE TO FOLLOW Pt. Addendum: 11/19/19 at 1530 by ROSENDO LI, [facility] [address] [address] Amended: Links added.
[2019-11-19] MEDS ORDERED: NOREPINEPHRINE BITARTRATE 32 MG in SODIUM CHLORIDE 0.9% 250 ML IV PRN (16:00)
[2019-11-19] MEDS: MIDAZOLAM 100MG-0.9% NS 100ML 100 ML IV SCH (16:06)
--- NOTE | 2019-11-19 19:00 | NUR ---
ACCEPTED CARE ACCEPTED CARE REPORT RECEIVED USING SBAR FORMAT
[2019-11-19] MEDS ORDERED: AMIODARONE HCL 450 MG in DEXTROSE 5%-WATER 250 ML IV SCH (21:00)
[2019-11-20] VITALS (90 sets, daily range): BP systolic 66–164; BP diastolic 28–92
[2019-11-20] MEDS: MIDAZOLAM 100MG-0.9% NS 100ML 100 ML IV SCH ×2 (01:27→13:26)
[2019-11-20] MEDS: INSULIN HUMULIN R 100 UNIT/ML 3ML SQ SCH ×4 (01:29→18:00)
[2019-11-20 03:53] LABS: ABG BASE EXCESS -6.5 mmol/L (-2.0-3.0); ABG HCO3 20.1 mmol/L (21.0-28.0); ABG OXYGEN SATURATION 96.4 % (95.0-99.0); ABG PCO2 44 mmHg (32-45)
[2019-11-20 04:22] LABS: BASOPHILS % (AUTO) 0.2 % (0.0-5.0); HEMATOCRIT 44.3 % (36-48); LYMPHOCYTES % (AUTO) 1.3 % (21.0-51.0); MEAN CORPUSCULAR HEMOGLOBIN 29.4 pg (27.0-33.0); MEAN CORPUSCULAR HGB CONC 33.4 g/dL (32.0-36.0); MEAN CORPUSCULAR VOLUME 88.1 fL (79-99); MONOCYTES % (AUTO) 3.7 % (3.0-13.0); NEUTROPHILS % (AUTO) 93.5 % (40.0-77.0); NUCLEATED RED BLOOD CELLS 0.6 % (0.0-0.19); PLATELET COUNT (AUTO) 272 K/uL (130-400); RED BLOOD CELL COUNT(AUTO) 5.03 MIL/uL (4.00-5.50); RED CELL DISTRIBUTION WIDTH 15.4 % (11.0-15.5); WHITE BLOOD COUNT (AUTO) 25.3 K/uL (4.8-10.8)
[2019-11-20 04:50] LABS: ALBUMIN 1.8 g/dL (3.5-5.0); BILIRUBIN,TOTAL 0.4 mg/dL (0.2-1.0); CREATININE 2.8 mg/dL (0.5-1.5); PHOSPHORUS 7.4 mg/dL (2.5-4.9); POTASSIUM 4.6 mmol/L (3.5-5.1); TOTAL PROTEIN, SERUM 5.7 g/dL (6.0-8.3)
[2019-11-20] MEDS: GUAIFENESIN-CODEINE 5 ML SYRUP PO SCH ×4 (04:55→22:26)
[2019-11-20] MEDS: FUROSEMIDE 10 MG/ML 2ML VIAL IV SCH (04:55)
[2019-11-20] MEDS: METRONIDAZOLE 500MG/100ML BAG 100 ML IV SCH (06:13)
[2019-11-20] MEDS: CEFEPIME HCL 1 GM VIAL IVP SCH ×3 (06:13→22:24)
[2019-11-20] MEDS: FENTANYL 2500MCG+NS 250ML 250 ML IV SCH ×2 (06:55→22:26)
--- NOTE | 2019-11-20 09:00 | NUR ---
SUPINE Placed pt in supine position. Repositioning tolerated by pt.
[2019-11-20] MEDS: LACTOBACILLUS RHAMNOSUS GG 1 EACH CAP.SPRINK PO SCH ×3 (09:50→22:26)
[2019-11-20] MEDS: METHYLPREDNISOLONE SOD SUCC 125MG/2ML VIAL IVP SCH ×2 (09:51→22:24)
[2019-11-20] MEDS: LACTATED RINGERS 1000ML 1,000 ML IV SCH ×2 (10:09→18:15)
[2019-11-20] MEDS: ENOXAPARIN SODIUM 80 MG/0.8 ML SQ SCH ×2 (10:10→22:25)
--- NOTE | 2019-11-20 12:00 | NUR ---
COVID-19 TEST RESULT NOTIFICATION Notified Anastasiya KULKARNI about pt's Covid-19 positive result via telephone. No new orders received.
[2019-11-20] MEDS: MIDODRINE HCL 5 MG TABLET PO SCH ×2 (13:42→22:25)
--- NOTE | 2019-11-20 19:00 | NUR ---
ACCEPTED CARE ACCEPTED CARE REPORT RECEIVED USING SBAR FORMAT
[2019-11-21] VITALS (64 sets, daily range): BP systolic 81–182; BP diastolic 45–102
[2019-11-21] MEDS: MIDAZOLAM 100MG-0.9% NS 100ML 100 ML IV SCH ×2 (02:24→14:39)
[2019-11-21] MEDS: GUAIFENESIN-CODEINE 5 ML SYRUP PO SCH ×4 (03:45→21:28)
[2019-11-21 04:24] LABS: ABG BASE EXCESS -4.5 mmol/L (-2.0-3.0); ABG HCO3 18.4 mmol/L (21.0-28.0); ABG OXYGEN SATURATION 97.5 % (95.0-99.0); ABG PCO2 29 mmHg (32-45)
[2019-11-21 05:01] LABS: BASOPHILS % (AUTO) 0.2 % (0.0-5.0); HEMATOCRIT 39.8 % (36-48); LYMPHOCYTES % (AUTO) 1.9 % (21.0-51.0); MEAN CORPUSCULAR HEMOGLOBIN 29.9 pg (27.0-33.0); MEAN CORPUSCULAR HGB CONC 34.4 g/dL (32.0-36.0); MEAN CORPUSCULAR VOLUME 86.9 fL (79-99); MONOCYTES % (AUTO) 2.5 % (3.0-13.0); NEUTROPHILS % (AUTO) 93.7 % (40.0-77.0); NUCLEATED RED BLOOD CELLS 1.4 % (0.0-0.19); PLATELET COUNT (AUTO) 137 K/uL (130-400); RED BLOOD CELL COUNT(AUTO) 4.58 MIL/uL (4.00-5.50); RED CELL DISTRIBUTION WIDTH 15.9 % (11.0-15.5); WHITE BLOOD COUNT (AUTO) 20.7 K/uL (4.8-10.8)
[2019-11-21 05:24] LABS: ALBUMIN 1.6 g/dL (3.5-5.0); BILIRUBIN,TOTAL 0.4 mg/dL (0.2-1.0); CREATININE 2.5 mg/dL (0.5-1.5); MAGNESIUM 2.7 mg/dL (1.80-2.40); PHOSPHORUS 4.4 mg/dL (2.5-4.9); POTASSIUM 5.1 mmol/L (3.5-5.1); TOTAL PROTEIN, SERUM 5.2 g/dL (6.0-8.3)
--- NOTE | 2019-11-21 06:00 | NUR ---
SUPINE TURNED PATIENT. SHE IS NOW SUPINED, TOLERATED WITHOUT DIFFICULTY OF INCIDENCE.
[2019-11-21] MEDS: CEFEPIME HCL 1 GM VIAL IVP SCH ×3 (06:24→21:27)
[2019-11-21] MEDS: LACTATED RINGERS 1000ML 1,000 ML IV SCH (06:24)
[2019-11-21] MEDS: INSULIN HUMULIN R 100 UNIT/ML 3ML SQ SCH ×4 (06:25→18:37)
[2019-11-21] MEDS: MIDODRINE HCL 5 MG TABLET PO SCH ×3 (09:41→21:00)
[2019-11-21] MEDS: METHYLPREDNISOLONE SOD SUCC 125MG/2ML VIAL IVP SCH ×2 (09:41→21:27)
[2019-11-21] MEDS: LACTOBACILLUS RHAMNOSUS GG 1 EACH CAP.SPRINK PO SCH ×3 (09:41→21:00)
[2019-11-21] MEDS: ENOXAPARIN SODIUM 80 MG/0.8 ML SQ SCH ×2 (09:41→21:28)
--- NOTE | 2019-11-21 13:00 | NUR ---
CHEST TUBE PLACEMENT Bilateral chest tubes placed at bedside by Dr Winn.
[2019-11-21] MEDS: 1/2 NORMAL SALINE 1,000 ML IV SCH ×2 (13:37→21:26)
--- NOTE | 2019-11-21 14:38 | NUR ---
FOLLOW UP COMPLETED. Pt INTUBATED ON 11/18 AND CURRENTLY ON VENTILATOR. RECOMMEND SKILLED SPEECH/SWALLOW EVALUATION 24 HOURS POST EXTUBATION. FILAMENT WOUND PARTS FABRICATOR WILL CONTINUE TO FOLLOW Pt. Addendum: 11/21/19 at 1439 by ROSENDO LI, [facility] Amended: Links added.
--- NOTE | 2019-11-21 17:00 | NUR ---
PRONE Patient tolerated being put in prone position
[2019-11-21] MEDS: FENTANYL 2500MCG+NS 250ML 250 ML IV SCH (18:31)
--- NOTE | 2019-11-21 19:00 | NUR ---
ACCEPTED CARE ACCEPTED CARE, REPORT RECEIVED USING SBAR FORMAT. PATIENT IS PRONED.
[2019-11-21] MEDS ORDERED: LACTATED RINGERS 1000ML 1,000 ML IV ONE (20:44)
[2019-11-21] MEDS: INSULIN GLARGINE 100 UNITS/ML 10 ML VIAL SQ SCH (21:00)
[2019-11-22] VITALS (74 sets, daily range): BP systolic 79–185; BP diastolic 41–94
[2019-11-22] MEDS: MIDAZOLAM 100MG-0.9% NS 100ML 100 ML IV SCH (03:04)
[2019-11-22] MEDS: GUAIFENESIN-CODEINE 5 ML SYRUP PO SCH ×4 (03:45→21:55)
[2019-11-22 03:48] LABS: ABG BASE EXCESS -2.8 mmol/L (-2.0-3.0); ABG HCO3 23.5 mmol/L (21.0-28.0); ABG OXYGEN SATURATION 94.7 % (95.0-99.0); ABG PCO2 46 mmHg (32-45)
[2019-11-22 04:13] LABS: BASOPHILS % (AUTO) 0.2 % (0.0-5.0); HEMATOCRIT 39.4 % (36-48); LYMPHOCYTES % (AUTO) 3.2 % (21.0-51.0); MEAN CORPUSCULAR HEMOGLOBIN 30.1 pg (27.0-33.0); MEAN CORPUSCULAR HGB CONC 34.3 g/dL (32.0-36.0); MEAN CORPUSCULAR VOLUME 87.8 fL (79-99); MONOCYTES % (AUTO) 3.6 % (3.0-13.0); NEUTROPHILS % (AUTO) 90.8 % (40.0-77.0); NUCLEATED RED BLOOD CELLS 1.6 % (0.0-0.19); PLATELET COUNT (AUTO) 159 K/uL (130-400); RED BLOOD CELL COUNT(AUTO) 4.49 MIL/uL (4.00-5.50); RED CELL DISTRIBUTION WIDTH 16.1 % (11.0-15.5); WHITE BLOOD COUNT (AUTO) 20.9 K/uL (4.8-10.8)
[2019-11-22 04:34] LABS: ALBUMIN 1.6 g/dL (3.5-5.0); BILIRUBIN,TOTAL 0.5 mg/dL (0.2-1.0); CREATININE 2.2 mg/dL (0.5-1.5); MAGNESIUM 3.4 mg/dL (1.80-2.40); PHOSPHORUS 4.1 mg/dL (2.5-4.9); POTASSIUM 5.5 mmol/L (3.5-5.1); TOTAL PROTEIN, SERUM 5.1 g/dL (6.0-8.3)
[2019-11-22] MEDS: 1/2 NORMAL SALINE 1,000 ML IV SCH (05:15)
[2019-11-22] MEDS: INSULIN HUMULIN R 100 UNIT/ML 3ML SQ SCH ×4 (05:16→18:00)
[2019-11-22] MEDS: CEFEPIME HCL 1 GM VIAL IVP SCH ×3 (05:20→21:55)
[2019-11-22] MEDS ORDERED: SODIUM POLYSTYRENE SULFONATE 15 GM/60 ML ML GT SCH (09:30)
[2019-11-22] MEDS: METHYLPREDNISOLONE SOD SUCC 125MG/2ML VIAL IVP SCH ×2 (10:07→20:43)
[2019-11-22] MEDS: MIDODRINE HCL 5 MG TABLET PO SCH ×3 (10:07→20:46)
[2019-11-22] MEDS: LACTOBACILLUS RHAMNOSUS GG 1 EACH CAP.SPRINK PO SCH ×3 (10:07→20:46)
[2019-11-22] MEDS: ENOXAPARIN SODIUM 80 MG/0.8 ML SQ SCH ×2 (10:11→20:44)
--- NOTE | 2019-11-22 19:00 | NUR ---
ACCEPTED CARE ACCEPTED CARE REPORT RECEIVED USING SBAR FORMAT
[2019-11-22] MEDS: INSULIN GLARGINE 100 UNITS/ML 10 ML VIAL SQ SCH (20:46)
[2019-11-23] VITALS (75 sets, daily range): BP systolic 82–164; BP diastolic 52–89
[2019-11-23] MEDS: MIDAZOLAM 100MG-0.9% NS 100ML 100 ML IV SCH (01:23)
[2019-11-23 03:38] LABS: ABG BASE EXCESS -2.5 mmol/L (-2.0-3.0); ABG OXYGEN SATURATION 90.4 % (95.0-99.0); ABG PCO2 42 mmHg (32-45)
[2019-11-23] MEDS: GUAIFENESIN-CODEINE 5 ML SYRUP PO SCH ×4 (03:50→22:05)
--- NOTE | 2019-11-23 04:00 | NUR ---
SUPINE PATIENT TURNED FROM PRONED TO SPINE. TOLERATED WITHOUT DIFFICULTY.
[2019-11-23 04:15] LABS: BASOPHILS % (AUTO) 0.2 % (0.0-5.0); HEMATOCRIT 41.4 % (36-48); LYMPHOCYTES % (AUTO) 1.8 % (21.0-51.0); MEAN CORPUSCULAR HEMOGLOBIN 29.6 pg (27.0-33.0); MEAN CORPUSCULAR HGB CONC 34.1 g/dL (32.0-36.0); MONOCYTES % (AUTO) 3.1 % (3.0-13.0); NEUTROPHILS % (AUTO) 92.6 % (40.0-77.0); NUCLEATED RED BLOOD CELLS 1.2 % (0.0-0.19); PLATELET COUNT (AUTO) 136 K/uL (130-400); RED BLOOD CELL COUNT(AUTO) 4.76 MIL/uL (4.00-5.50); RED CELL DISTRIBUTION WIDTH 16.1 % (11.0-15.5); WHITE BLOOD COUNT (AUTO) 25.1 K/uL (4.8-10.8)
[2019-11-23 04:29] LABS: ALBUMIN 1.7 g/dL (3.5-5.0); BILIRUBIN,TOTAL 0.6 mg/dL (0.2-1.0); CREATININE 1.8 mg/dL (0.5-1.5); MAGNESIUM 2.7 mg/dL (1.80-2.40); PHOSPHORUS 4.3 mg/dL (2.5-4.9); POTASSIUM 5.3 mmol/L (3.5-5.1); TOTAL PROTEIN, SERUM 5.2 g/dL (6.0-8.3)
[2019-11-23] MEDS: CEFEPIME HCL 1 GM VIAL IVP SCH ×3 (05:25→22:05)
[2019-11-23] MEDS: INSULIN HUMULIN R 100 UNIT/ML 3ML SQ SCH ×4 (05:28→18:00)
[2019-11-23] MEDS: MIDODRINE HCL 5 MG TABLET PO SCH ×3 (09:37→20:31)
[2019-11-23] MEDS: LACTOBACILLUS RHAMNOSUS GG 1 EACH CAP.SPRINK PO SCH ×3 (09:37→20:31)
[2019-11-23] MEDS: ENOXAPARIN SODIUM 80 MG/0.8 ML SQ SCH ×2 (09:38→20:33)
[2019-11-23] MEDS: METHYLPREDNISOLONE SOD SUCC 125MG/2ML VIAL IVP SCH (09:40)
--- NOTE | 2019-11-23 12:00 | NUR ---
PRONE Patient tolerated being put in prone position
--- NOTE | 2019-11-23 19:00 | NUR ---
ACCEPTED CARE ACCEPTED CARE REPORT RECEIVED USING SBAR FORMAT
[2019-11-23] MEDS: INSULIN GLARGINE 100 UNITS/ML 10 ML VIAL SQ SCH (20:39)
[2019-11-23] MEDS: FENTANYL 2500MCG+NS 250ML 250 ML IV SCH (22:06)
[2019-11-24] VITALS (83 sets, daily range): BP systolic 75–149; BP diastolic 29–95
--- NOTE | 2019-11-24 04:00 | NUR ---
SPINE PATIENT WAS SUPINED WITH THE HELP OF RT. TOLERATED WITHOUT INCIDENCE.
[2019-11-24] MEDS: GUAIFENESIN-CODEINE 5 ML SYRUP PO SCH ×4 (04:16→20:53)
[2019-11-24 04:24] LABS: BASOPHILS % (AUTO) 0.2 % (0.0-5.0); HEMATOCRIT 36.2 % (36-48); LYMPHOCYTES % (AUTO) 1.8 % (21.0-51.0); MEAN CORPUSCULAR HEMOGLOBIN 29.8 pg (27.0-33.0); MEAN CORPUSCULAR VOLUME 87.7 fL (79-99); MONOCYTES % (AUTO) 4.7 % (3.0-13.0); NEUTROPHILS % (AUTO) 90.6 % (40.0-77.0); NUCLEATED RED BLOOD CELLS 1.2 % (0.0-0.19); PLATELET COUNT (AUTO) 96 K/uL (130-400); RED BLOOD CELL COUNT(AUTO) 4.13 MIL/uL (4.00-5.50); RED CELL DISTRIBUTION WIDTH 15.9 % (11.0-15.5); WHITE BLOOD COUNT (AUTO) 25.1 K/uL (4.8-10.8)
[2019-11-24 04:40] LABS: CREATININE 1.8 mg/dL (0.5-1.5); POTASSIUM 5.8 mmol/L (3.5-5.1)
--- NOTE | 2019-11-24 05:45 | NUR ---
NG TUBE 1200 RESIDUAL NG TUBE CONNECTED TO LIWS. 1200 MLS OF BROWN LIQUID CONTENT RETURNED IMMEDIATELY.
[2019-11-24] MEDS: CEFEPIME HCL 1 GM VIAL IVP SCH ×3 (05:57→22:48)
[2019-11-24] MEDS: INSULIN HUMULIN R 100 UNIT/ML 3ML SQ SCH ×4 (06:03→18:00)
[2019-11-24] MEDS: LACTOBACILLUS RHAMNOSUS GG 1 EACH CAP.SPRINK PO SCH ×3 (09:16→20:30)
[2019-11-24] MEDS: ENOXAPARIN SODIUM 80 MG/0.8 ML SQ SCH ×2 (09:16→20:30)
[2019-11-24] MEDS: MIDODRINE HCL 5 MG TABLET PO SCH ×3 (09:16→20:30)
[2019-11-24] MEDS: METHYLPREDNISOLONE SOD SUCC 125MG/2ML VIAL IVP SCH (09:17)
[2019-11-24] MEDS ORDERED: SODIUM POLYSTYRENE SULFONATE 15 GM/60 ML ML PO SCH (09:45)
--- NOTE | 2019-11-24 12:42 | NUR ---
RD FOLLOW UP Pt with tube feeding modification from Glucerna 1.5 to Nepro 1.8. Pt with elevated serum potassium levels, elevated WBC, continues with altered renal lab values. Tube Feeding Recommendation for Nepro formula initiated at 10mls/hr, Goal rate 45mls/hr Recommend H2O Flushes at 160 mls Q4Hrs. Recommendations faxed to 2C, Called Unit, no answer. RD to continue to monitor. Please notify as additional nutrition concerns arise. Thank you. Addendum: 11/24/19 at [address] Amended: Links added.
--- NOTE | 2019-11-24 15:34 | NUR ---
FOLLOW UP COMPLETED. Pt CONTINUES TO BE INTUBATED AT THIS TIME. NO EVALUATION AT THIS TIME. MECHANICAL OPERATOR WILL CONTINUE TO FOLLOW Pt. Addendum: 11/24/19 at 1535 by ROSENDO LI, [facility] ST Amended: Links added.
--- NOTE | 2019-11-24 19:00 | NUR ---
ACCEPTED CARE ACCEPTED CARE REPORT RECEIVED USING SBAR FORMAT.
[2019-11-24] MEDS: INSULIN GLARGINE 100 UNITS/ML 10 ML VIAL SQ SCH (20:35)
[2019-11-24] MEDS: MIDAZOLAM 100MG-0.9% NS 100ML 100 ML IV SCH (20:53)
[2019-11-25] VITALS (61 sets, daily range): BP systolic 80–128; BP diastolic 38–74
[2019-11-25] MEDS: INSULIN HUMULIN R 100 UNIT/ML 3ML SQ SCH ×4 (01:28→17:12)
[2019-11-25] MEDS: FENTANYL 2500MCG+NS 250ML 250 ML IV SCH (01:43)
[2019-11-25] MEDS: GUAIFENESIN-CODEINE 5 ML SYRUP PO SCH ×4 (04:40→21:02)
[2019-11-25] MEDS: CEFEPIME HCL 1 GM VIAL IVP SCH ×3 (06:44→21:02)
[2019-11-25] MEDS: ENOXAPARIN SODIUM 80 MG/0.8 ML SQ SCH ×2 (08:06→20:21)
[2019-11-25] MEDS: LACTOBACILLUS RHAMNOSUS GG 1 EACH CAP.SPRINK PO SCH ×3 (08:06→20:21)
[2019-11-25] MEDS: MIDODRINE HCL 5 MG TABLET PO SCH ×3 (08:06→20:21)
[2019-11-25] MEDS: METHYLPREDNISOLONE SOD SUCC 125MG/2ML VIAL IVP SCH (08:06)
[2019-11-25 09:21] LABS: BASOPHILS % (AUTO) 0.3 % (0.0-5.0); HEMATOCRIT 34.1 % (36-48); LYMPHOCYTES % (AUTO) 3.3 % (21.0-51.0); MEAN CORPUSCULAR HGB CONC 33.7 g/dL (32.0-36.0); MONOCYTES % (AUTO) 5.5 % (3.0-13.0); NEUTROPHILS % (AUTO) 86.4 % (40.0-77.0); NUCLEATED RED BLOOD CELLS 2.6 % (0.0-0.19); PLATELET COUNT (AUTO) 86 K/uL (130-400); RED BLOOD CELL COUNT(AUTO) 3.83 MIL/uL (4.00-5.50); RED CELL DISTRIBUTION WIDTH 17.5 % (11.0-15.5)
[2019-11-25 09:24] LABS: WHITE BLOOD COUNT (AUTO) 32.2 K/uL (4.8-10.8)
[2019-11-25 09:45] LABS: ALBUMIN 1.7 g/dL (3.5-5.0); BILIRUBIN,TOTAL 0.4 mg/dL (0.2-1.0); CREATININE 1.7 mg/dL (0.5-1.5); MAGNESIUM 3.7 mg/dL (1.80-2.40); PHOSPHORUS 3.7 mg/dL (2.5-4.9); TOTAL PROTEIN, SERUM 4.8 g/dL (6.0-8.3)
[2019-11-25 09:55] LABS: LYMPHOCYTES % (MANUAL) 4 % (22-44); MONOCYTES % (MANUAL) 1 % (2-9); SEGMENTED NEUTROPHILS % 95 % (40-70)
[2019-11-25 09:56] LABS: MAN.DIFF COMMENT-IMPRESSION MANUAL DIFFERENTIAL; PLATELET MORPHOLOGY COMMENT DECREASED
[2019-11-25 10:01] LABS: POTASSIUM 6.2 mmol/L (3.5-5.1)
[2019-11-25] MEDS ORDERED: SODIUM POLYSTYRENE SULFONATE 15 GM/60 ML ML NG SCH (10:17)
[2019-11-25] MEDS ORDERED: SODIUM POLYSTYRENE SULFONATE 15 GM/60 ML ML ONE (10:20)
[2019-11-25 11:33] LABS: ABG BASE EXCESS -1.1 mmol/L (-2.0-3.0); ABG HCO3 23.8 mmol/L (21.0-28.0); ABG OXYGEN SATURATION 90.4 % (95.0-99.0); ABG PCO2 41 mmHg (32-45)
[2019-11-25] MEDS ORDERED: INSULIN HUMULIN R 100 UNIT/ML 3ML SQ SCH (17:00)
[2019-11-25] MEDS ORDERED: DEXTROSE 50%-WATER 50 ML DISP.SYRIN IV SCH (17:00)
[2019-11-25] MEDS ORDERED: CALCIUM GLUCONATE 1 GM/10 ML VIAL IV SCH (17:00)
--- NOTE | 2019-11-25 19:00 | NUR ---
ACCEPTED CARE ACCEPTED CARE REPORT RECEIVED USING SBAR FORMAT
--- NOTE | 2019-11-25 19:13 | NUR ---
Spoke with Dr. Banks this am in regards to WBC 32.2. Provider aware and asked if i could paged the bench debora team. Author has not received a response at this time. On coming nurse received report and informed to page bench debora team for further treatment. will continue to monitor as needed.
[2019-11-25] MEDS ORDERED: CALCIUM GLUCONATE 1 GM/10 ML VIAL IV ONE (20:05)
[2019-11-25] MEDS ORDERED: DEXTROSE 50%-WATER 50 ML DISP.SYRIN IV ONE (20:07)
[2019-11-25] MEDS: INSULIN GLARGINE 100 UNITS/ML 10 ML VIAL SQ SCH (20:23)
--- NOTE | 2019-11-25 20:58 | NUR ---
NOTIFICATION JACKI DICKENS DIGITAL MEDIA COORDINATOR FROM [employer] RETURNED CALL REGARDING TEMPERATURE AND WBC, NO NEW ORDERS.
[2019-11-26] VITALS (61 sets, daily range): BP systolic 56–211; BP diastolic 23–112
--- NOTE | 2019-11-26 | NUR ---
CRITICAL POTASSIUM JACKI DICKENS ABSTRACT SEARCHER NOTIFIED OF CRITICAL POTASSIUM LEVEL. NEW ORDERS RECEIVED.
[2019-11-26] MEDS ORDERED: CALCIUM GLUCONATE 1 GM/10 ML VIAL IV SCH (00:15)
[2019-11-26] MEDS ORDERED: DEXTROSE 50%-WATER 25 GM/50 ML VIAL IV SCH (00:15)
[2019-11-26] MEDS: SODIUM POLYSTYRENE SULFONATE 15 GM/60 ML ML PO SCH ×2 (00:15→20:27)
[2019-11-26] MEDS: INSULIN HUMULIN R 100 UNIT/ML 3ML IV SCH ×2 (00:15→20:31)
[2019-11-26] MEDS ORDERED: CALCIUM GLUCONATE 1 GM/10 ML VIAL IV ONE (00:29)
[2019-11-26] MEDS ORDERED: DEXTROSE 50%-WATER 50 ML DISP.SYRIN IV ONE ×2 (00:30→20:21)
[2019-11-26] MEDS ORDERED: SODIUM POLYSTYRENE SULFONATE 15 GM/60 ML ML ONE (00:30)
[2019-11-26] MEDS: MIDAZOLAM 100MG-0.9% NS 100ML 100 ML IV SCH (00:34)
[2019-11-26] MEDS: FENTANYL 2500MCG+NS 250ML 250 ML IV SCH (00:34)
[2019-11-26] MEDS: INSULIN HUMULIN R 100 UNIT/ML 3ML SQ SCH ×5 (00:39→23:47)
[2019-11-26] MEDS: GUAIFENESIN-CODEINE 5 ML SYRUP PO SCH ×4 (03:45→20:49)
[2019-11-26 05:25] LABS: BASOPHILS % (AUTO) 0.1 % (0.0-5.0); HEMATOCRIT 31.9 % (36-48); MEAN CORPUSCULAR HEMOGLOBIN 30.8 pg (27.0-33.0); MEAN CORPUSCULAR HGB CONC 33.2 g/dL (32.0-36.0); MEAN CORPUSCULAR VOLUME 92.7 fL (79-99); MONOCYTES % (AUTO) 6.5 % (3.0-13.0); NEUTROPHILS % (AUTO) 84.6 % (40.0-77.0); NUCLEATED RED BLOOD CELLS 10.2 % (0.0-0.19); PLATELET COUNT (AUTO) 119 K/uL (130-400); RED BLOOD CELL COUNT(AUTO) 3.44 MIL/uL (4.00-5.50); RED CELL DISTRIBUTION WIDTH 18.4 % (11.0-15.5)
[2019-11-26] MEDS: CEFEPIME HCL 1 GM VIAL IVP SCH (05:28)
[2019-11-26 05:29] LABS: WHITE BLOOD COUNT (AUTO) 44.8 K/uL (4.8-10.8)
[2019-11-26 05:42] LABS: B-TYPE NATRIURETIC PEPTIDE 157 pg/mL (0-100)
[2019-11-26 06:04] LABS: ALBUMIN 1.7 g/dL (3.5-5.0); BILIRUBIN,TOTAL 0.6 mg/dL (0.2-1.0); MAGNESIUM 2.8 mg/dL (1.80-2.40); PHOSPHORUS 4.8 mg/dL (2.5-4.9); TOTAL PROTEIN, SERUM 4.7 g/dL (6.0-8.3)
[2019-11-26 06:12] LABS: POTASSIUM 6.4 mmol/L (3.5-5.1)
[2019-11-26 06:40] LABS: ABG BASE EXCESS -7.6 mmol/L (-2.0-3.0); ABG HCO3 18.3 mmol/L (21.0-28.0); ABG OXYGEN SATURATION 84.7 % (95.0-99.0); ABG PCO2 39 mmHg (32-45)
--- NOTE | 2019-11-26 06:40 | NUR ---
CRITICAL LABS JACKI DICKENS NP PAGED REGARDING HEART RATE, BLOOD PRESSURE, POTASSIUM, WBC'S AND OVERALL CONDITION OF 07:14 NO RETURN CALL.
--- NOTE | 2019-11-26 06:45 | NUR ---
CRITICAL LABS DR HERMAN PAGED DR. SHELL CALLED BACK AT 7:10 UPDATE WITH LABS AND VITALS HE ADVISED TO CALL DR HERMAN.
[2019-11-26] MEDS ORDERED: 1/2 NORMAL SALINE 1,000 ML IV ONE ×2 (06:50→11:02)
[2019-11-26] MEDS ORDERED: LACTATED RINGERS 1000ML 1,000 ML IV ONE (07:12)
--- NOTE | 2019-11-26 07:15 | NUR ---
LABS AND VITALS DR HERMAN RE-PAGED REGARDING LABS AND VITALS
--- NOTE | 2019-11-26 07:20 | NUR ---
VITAL SIGNS AND LABS CALLED DR HERMAN'S CELLPHONE, NO ANSWER. HE HAS BEEN RE-PAGED VIA ANSWERING SERVICE WELL.
[2019-11-26] MEDS: MIDODRINE HCL 5 MG TABLET PO SCH ×3 (09:04→20:26)
[2019-11-26] MEDS: LACTOBACILLUS RHAMNOSUS GG 1 EACH CAP.SPRINK PO SCH ×3 (09:04→20:26)
[2019-11-26] MEDS: METHYLPREDNISOLONE SOD SUCC 125MG/2ML VIAL IVP SCH (09:04)
[2019-11-26] MEDS: ENOXAPARIN SODIUM 80 MG/0.8 ML SQ SCH (09:04)
[2019-11-26] MEDS ORDERED: FUROSEMIDE 10 MG/ML 4ML VIAL ONE (09:28)
[2019-11-26] MEDS ORDERED: DEXTROSE 50%-WATER 50 ML DISP.SYRIN IV SCH (10:45)
[2019-11-26] MEDS ORDERED: VANCOMYCIN PROTOCOL PER PHARMACY IV SCH (10:45)
[2019-11-26] MEDS ORDERED: INSULIN HUMULIN R 100 UNIT/ML 3ML SQ SCH (10:45)
--- NOTE | 2019-11-26 11:49 | NUR ---
Spoke with [employer] team in regards to patients continuous low blood pressure and increased heart rate. Informed patient is now on max of levophed at this time. provider states orders are in system. will continue to monitor as needed.
[2019-11-26] MEDS ORDERED: FUROSEMIDE 10 MG/ML 4ML VIAL IV SCH (11:55)
[2019-11-26] MEDS ORDERED: SODIUM BICARB 50MEQ 50ML VIAL IV SCH (11:56)
[2019-11-26] MEDS ORDERED: VANCOMYCIN 1GM+NS 250ML 250 ML IV ONE (12:01)
[2019-11-26 12:10] LABS: TROPONIN I 0.27 ng/mL (0.00-0.06)
[2019-11-26] MEDS ORDERED: VASOPRESSIN 40 UNITS in SODIUM CHLORIDE 0.9% 40 ML IV SCH (14:45)
[2019-11-26 15:16] LABS: ALBUMIN 1.3 g/dL (3.5-5.0); BILIRUBIN,TOTAL 1.1 mg/dL (0.2-1.0); CREATININE 2.5 mg/dL (0.5-1.5); TOTAL PROTEIN, SERUM 3.8 g/dL (6.0-8.3)
[2019-11-26 15:21] LABS: POTASSIUM 6.3 mmol/L (3.5-5.1)
[2019-11-26] MEDS ORDERED: 1/2 NORMAL SALINE 3,000 ML IV ONE (15:21)
[2019-11-26 17:34] LABS: TROPONIN I 0.2 ng/mL (0.00-0.06)
--- NOTE | 2019-11-26 19:00 | NUR ---
ACCEPTED CARE REPORT RECEIVED USING SBAR FORMAT
[2019-11-26] MEDS ORDERED: INSULIN HUMULIN R 100 UNIT/ML 3ML SQ PRN (19:30)
[2019-11-26] MEDS ORDERED: DEXTROSE 50%-WATER 25 GM/50 ML VIAL IV PRN (19:30)
[2019-11-26] MEDS ORDERED: CALCIUM GLUCONATE 1 GM/10 ML VIAL IV PRN (19:30)
--- NOTE | 2019-11-26 20:00 | NUR ---
WARMING BLANKET DUE TO LOW BODY TEMPERATURE PATIENT PLACED ON WARMING BLANKET.
[2019-11-26] MEDS: INSULIN GLARGINE 100 UNITS/ML 10 ML VIAL SQ SCH (20:30)
[2019-11-26 22:38] LABS: BILIRUBIN,URINE Negative (NEGATIVE); COLOR,URINE Dark Yellow (YELLOW); GLUCOSE, URINE (UA) TRACE mg/dL (NEGATIVE); KETONES,URINE Negative (NEGATIVE); LEUKOCYTE ESTERASE ,URINE Trace (NEGATIVE); NITRATE,URINE Negative (NEGATIVE); OCCULT BLOOD,URINE Large (NEGATIVE); PROTEIN,URINE POS 2+ mg/dL (NEGATIVE)
[2019-11-26 22:39] LABS: APPEARANCE,URINE CLOUDY (CLEAR)
[2019-11-26 22:59] LABS: BACTERIA,URINE Many /HPF (None Seen); SQUAMOUS EPITHELIAL CELL,UR 0-2 /HPF (0-2)
[2019-11-26 23:00] LABS: AMORPHOUS SEDIMENT,UR Moderate /LPF (None Seen)
[2019-11-27 00:23] LABS: TROPONIN I 1.52 ng/mL (0.00-0.06)
--- NOTE | 2019-11-27 01:25 | NUR ---
Swidjit PAGED ROSEANNE AMIN FROM [facility] RETURNED CALL UPDATED REGARDING LABS, VITAL SIGNS AND PATIENT CONDITION. ORDER RECEIVED TO START EPINEPHRIN DRIP IF NECESSARY.
--- NOTE | 2019-11-27 01:30 | NUR ---
FAMILY CALLED MR CAT WAS CALLED AND UPDATED REGARDING HIS 'S CONDITION, CURRENT SITUATION AND EXPECTED CODE TONIGHT. MR CAT STATED HE WOULD LIKE HIS SON STACEY TO SPEAK WITH ME. HU CALLED BACK IMMEDIATELY. PER MR CAT'S REQUEST HU WAS UPDATED REGARDING LABS, CURRENT MEDICATIONS /DRIPS, AND PROGNOSIS. HU EXPRESSED UNDERSTANDING AND STATED THAT HE WANTED TO SPEAK WITH ME AND HIS FATHER IN A 3 WAY CALL. BEFORE HU COULD CALL BACK THE PATIENT'S HEART RATE STARTED TO DECREASE. SPOKE TO MR CAT AGAIN AND HE STATED THAT HE WANTED HER CODED. HOSPITAL'S CODE TEAM WAS ACTIVATED. HEROIC EFFORTS WERE UNSUCCESSFUL.
--- NOTE | 2019-11-27 03:29 | NUR ---
POST MORTEM CARE POST MORTEM CARE PROVIDED.
--- NOTE | 2019-11-27 04:46 | NUR ---
TRANSPORT BODY TRANSPORTED TO [facility] BY SECURITY.
== END 2019-11-27 02:17 | disposition expired | DRG 870 ==
LOC: EDH 15:32 → EDHIP 17:35 → 2DH 11-09 00:51 → 2CH 11-11 18:44
PROVIDERS: ADMIT Internal Medicine; ATTEND Internal Medicine
PROC: 05HM33Z Insertion of Infusion Device into Right Internal Jugular Vein, Percutaneous Approach (ICD-10-PCS; 2019-11-08)
PROC: B543ZZA Ultrasonography of Right Jugular Veins, Guidance (ICD-10-PCS; 2019-11-08)
PROC: 0W9B30Z Drainage of Left Pleural Cavity with Drainage Device, Percutaneous Approach (ICD-10-PCS; 2019-11-08)
PROC: 0W9930Z Drainage of Right Pleural Cavity with Drainage Device, Percutaneous Approach (ICD-10-PCS; 2019-11-08)
PROC: 5A1955Z Respiratory Ventilation, Greater than 96 Consecutive Hours (ICD-10-PCS; principal; 2019-11-19)
PROC: 0BH17EZ Insertion of Endotracheal Airway into Trachea, Via Natural or Artificial Opening (ICD-10-PCS; 2019-11-19)
DX: A41.89 Other specified sepsis (principal); U07.1 COVID-19; J12.89 Other viral pneumonia; J96.01 Acute respiratory failure with hypoxia; E43 Unspecified severe protein-calorie malnutrition; J44.0 Chronic obstructive pulmonary disease with (acute) lower respiratory infection; E44.0 Moderate protein-calorie malnutrition; T79.7XXA Traumatic subcutaneous emphysema, initial encounter; J93.9 Pneumothorax, unspecified; N17.9 Acute kidney failure, unspecified; E87.6 Hypokalemia; I10 Essential (primary) hypertension; E11.9 Type 2 diabetes mellitus without complications; E86.0 Dehydration; E11.22 Type 2 diabetes mellitus with diabetic chronic kidney disease; I12.9 Hypertensive chronic kidney disease with stage 1 through stage 4 chronic kidney disease, or unspecified chronic kidney disease
CPT/HCPCS: 31500; 31720; 36415; 36556; 36600; 71045; 71250; 80048; 80053; 80076; 81001; 82270; 82330; 82550; 82728; 82803; 82948; 83605; 83615; 83735; 83874; 83880; 84100; 84132; 84145; 84300; 84443; 84484; 85025; 85027; 85378; 85610; 85730; 86140; 86850; 86900; 86901; 87040; 87071; 87088; 87205; 87324; 87426; 92950; 93005; 94002; 94003; 94660; 94760; A4344; A4606; G0378; J0282; J0456; J0610; J0692; J1100; J1650; J1815; J1940; J2250; J2405; J2930; J3010; J3370; J3480; J3490; J7040; J7050; J7060; J7070; J7120; U0003